=== PATIENT | female | born 1965 | race Caucasian/White ===

== ENCOUNTER 2017-08-25 17:00 | Emergency (ER) | payer BC ==
[2017-08-25 17:58] VITALS: BP 131/94
[2017-08-25] MEDS ORDERED: Tetan/Diph/Pertus SYR(Tdap)* 0.5 ML SYR(BOOSTRIX) use SYR IM ONE (18:21)
--- NOTE | 2017-08-25 18:29 | UC ---
Bite Injury/Animal HPI - HPI Summary HPI Summary: earlier today, the pt tried to break up a fight between her 4 dogs and the house cat. she got in the middle to breakit up and was scratched plus bitten by her cat. cat and dogs were all normal prior to the fight. all are utd on rabies. pt had cat put down and has washed the wounds plus took a shower. this happened earlier today. last tetanus > 10 years ago. - History of Current Complaint Hx Obtained From: Patient Pain Intensity: 3 Type of Bite: Pet - cat Has Animal Been Immunized?: Yes Aggravating Factor(s): Nothing Alleviating Factor(s): Nothing Animal Available for Observation: No <Rosalina Hargrove - Last Filed: 08/25/17 18:34> <Bianka Enrique - Last Filed: 08/25/17 18:48> - History of Current Complaint Chief Complaint: UCBiteInjury Stated Complaint: CAT SCRATCHES/BITES Time Seen by Provider: 08/25/17 18:14 - Allergies/Home Medications Allergies/Adverse Reactions: Allergies Allergy/AdvReac Type Severity Reaction Status Date / Time Penicillins Allergy Hives Verified 08/25/17 18:01 Home Medications: Home Medications Naproxen Sodium [Aleve] 220 mg PO ONCE PRN 08/25/17 [History Confirmed 08/25/17] PMH/Surg Hx/FS Hx/Imm Hx Neurological History: Migraine Psychological History: Anxiety - Surgical History Surgical History: Yes Surgery Procedure, Year, and Place: [facility]. T&A. hysterectomy. bladder mesh - Social History Lives: With Family Alcohol Use: None Substance Use Type: None Smoking Status (MU): Never Smoked Tobacco - Immunization History Most Recent Tetanus Shot: >10 yrs <Rosalina Hargrove - Last Filed: 08/25/17 18:34> Review of Systems Constitutional: Negative Skin: Other - scratches/pw's Eyes: Negative ENT: Negative Respiratory: Negative Cardiovascular: Negative Gastrointestinal: Negative Genitourinary: Negative Motor: Negative Neurovascular: Negative Musculoskeletal: Negative Neurological: Negative Psychological: Negative Is Patient Immunocompromised?: No All Other Systems Reviewed And Are Negative: Yes <Rosalina Hargrove - Last Filed: 08/25/17 18:34> Physical Exam Triage Information Reviewed: Yes Appearance: Well-Appearing Vital Signs: Initial Vital Signs Temp 98.3 F 08/25/17 17:44 Pulse 77 08/25/17 17:44 Resp 16 08/25/17 17:44 BP 131/94 08/25/17 17:44 Pulse Ox 99 08/25/17 17:44 Vital Signs Reviewed: Yes Eyes: Positive: Conjunctiva Clear ENT: Positive: Normal ENT inspection Neck: Positive: Supple, Nontender, No Lymphadenopathy Respiratory: Positive: Lungs clear, Normal breath sounds Cardiovascular: Positive: RRR, No Murmur Abdomen Description: Positive: Nontender, No Organomegaly, Soft Bowel Sounds: Positive: Present Musculoskeletal: Positive: ROM Intact Neurological: Positive: Alert Psychological: Positive: Age Appropriate Behavior Skin Exam: Normal, Other - multiple scratches and small pw's to BUE's and RLE. also minor abrasions to both knees. no erythema and full s/v/m intact x4. <Rosalina Hargrove - Last Filed: 08/25/17 18:34> Vital Signs: Initial Vital Signs Temp 98.3 F 08/25/17 17:44 Pulse 77 08/25/17 17:44 Resp 16 08/25/17 17:44 BP 131/94 08/25/17 17:44 Pulse Ox 99 08/25/17 17:44 <Bianka Enrique - Last Filed: 08/25/17 18:48> Bite Injury Course/Dx - Course Course Of Treatment: pt recently tx for uti with multiple antibiotics. she was advised of risk for c-diff given back to back antibiotic therapy and also advised of risk for infection from the wounds. she is willing to take the antibiotics and agrees to start Culturelle daily as well as consume live active cultures from yogurt. - Differential Dx/Diagnosis Provider Diagnoses: multiple cat bites/scratches <Rosalina Hargrove - Last Filed: 08/25/17 18:34> Discharge - Sign-Out/Discharge Documenting (check all that apply): Discharge/Admit/Transfer - Billing Disposition and Condition Condition: STABLE Disposition: HOME <Rosalina Hargrove - Last Filed: 08/25/17 18:34> - Billing Disposition and Condition Condition: STABLE Disposition: HOME <Bianka Enrique - Last Filed: 08/25/17 18:48> - Discharge Plan Condition: Stable Disposition: HOME Prescriptions: metroNIDAZOLE [Flagyl 500 MG TAB] 500 mg PO TID #1 tab Sulfamethox/Trimethoprim DS* [Bactrim DS 800/160 TAB*] 1 tab PO BID #14 tab Patient Education Materials: Animal Bite (ED) Referrals: Veena Cruz PA [Primary Care Provider] - 5 Days Attestation Statement User Type: Provider - I was available for consult. This patient was seen by the [facility]. The patient was not presented to, seen by, or examined by me. -Armand <Bianka Enrique - Last Filed: 08/25/17 18:48>
== END 2017-08-25 18:41 | disposition home or self-care (01) ==
LOC: UCCORT 17:00
DX: T14.8XXA Other injury of unspecified body region, initial encounter (principal); W55.03XA Scratched by cat, initial encounter; Y92.9 Unspecified place or not applicable
CPT/HCPCS: 90471; 90715; 99212; G0463